=== PATIENT | female | born 1950 | race Caucasian/White ===

== ENCOUNTER → 2017-07-27 12:54 | Outpatient (POV) | payer MEDICARE, OTHER, SELFPAY | PROVIDERS: Family Provider Family Medicine; PCP Nurse Practitioner; Visit Provider Dermatology | DX: Z00.00 Encounter for general adult medical examination without abnormal findings (principal) ==

== ENCOUNTER 2018-12-20 22:02 | Observation (INO) ==
[2018-12-20 22:19] LABS: Basophils # 0.1 K/mm3 (0-0.2); Basophils % 0.6 % (0.1-2.0); Eosinophils # 0.1 K/mm3 (0.0-0.4); Eosinophils % 1.2 % (0.1-12.0); Hematocrit 40.9 % (37.0-47.0); Lymphocytes # 1.8 K/mm3 (0.7-4.5); Lymphocytes % 16.3 % (10-50); Mean Corpuscular HGB Conc 31.7 g/dL (31.8-35.4); Mean Corpuscular Volume 87.3 fl (81-99); Mean Platelet Volume 7.9 fl (7.4-10.4); Monocytes # 0.6 K/mm3 (0.1-1.0); Monocytes % 5.9 % (1.7-9.3); Neutrophils # 8.2 K/mm3 (1.8-7.8); Platelet Count 346 K/mm3 (142-424); Red Blood Count 4.68 M/mm3 (4.20-5.40); White Blood Count 10.8 K/mm3 (4.8-10.8)
[2018-12-20 22:32] LABS: Blood Urea Nitrogen 18 mg/dL (7-18); Calcium 9.4 mg/dL (8.5-10.1); Carbon Dioxide 31 mmol/L (21.0-32.0); Glucose 113 mg/dL (74-106); Sodium 143 mmol/L (136-145)
[2018-12-20 22:39] LABS: Anion Gap 9.8 mEq/L (5-15); Chloride 105 mmol/L (98-107)
[2018-12-20 23:27] LABS: Albumin Level 3.8 gm/dL (3.4-5.0); Bilirubin,Direct 0.5 mg/dL (0.0-0.2); Bilirubin,Indirect 0.9 mg/dL (0.0-0.9); Bilirubin,Total 1.4 mg/dL (0.2-1.0)
--- NOTE | 2018-12-20 23:40 | Emergency Department Note ---
ED Disposition Clinical Impression: Hypokalemia, Transaminasemia Chest pain Qualifiers: Chest pain type: precordial pain Qualified Code(s): R07.2 - Precordial pain Disposition: Admitted as Observation Condition on Discharge: Good Referrals: Juanito Camejo MD [Primary Care Provider] - - Critical Care Critical Care Time: No Attestation: On 12/20/18, the high probability of a clinically significant, sudden or life threatening deterioration of the following system(s) required my full and direct attention, intervention and personal management. The time I documented below is in addition to time spent performing reported procedures but includes the following listed in this critical care notation. Medical Decision Making - Medical Records Medical records reviewed: Yes: I reviewed the patient's medical records. - David Inquiry Pt receiving controlled substance: No Vital Signs: 12/20/18 22:03 Temperature 98.5 F Temperature Source Oral Pulse Rate [Right] 76 Respiratory Rate 18 Blood Pressure [Right Arm] 168/87 H Blood Pressure Mean [Right Arm] 114 02 Sat by Pulse Oximetry 98 - Lab Data Lab results reviewed: Yes: I reviewed the patient's lab results. Lab Results 12/20/18 22:10: WBC 10.8, RBC 4.68, Hgb 13.0, Hct 40.9, MCV 87.3, MCH 27.7, MCHC 31.7 L, RDW 14.0, Plt Count 346, MPV 7.9, Neut % (Auto) 76.0, Lymph % (Auto) 16.3, [place] % (Auto) 5.9, Eos % (Auto) 1.2, Baso % (Auto) 0.6, Neut # (Auto) 8.2 H, Lymph # (Auto) 1.8, [place] # (Auto) 0.6, Eos # (Auto) 0.1, Baso # (Auto) 0.1 12/20/18 22:10: Sodium 143, Potassium 2.8 L*, Chloride 105, Carbon Dioxide 31, Anion Gap 9.8, BUN 18, Creatinine 0.74, Estimated Creat Clear 68, Estimated GFR 78, Est GFR ( Amer) 95, Glucose 113 H, Calcium 9.4, Troponin I < 0.02 12/20/18 22:10: Total Bilirubin 1.4 H, Direct Bilirubin 0.5 H, Indirect Bilirubin 0.9, AST 124 H, ALT 79 H, Alkaline Phosphatase 118 H, Total Protein 7.0, Albumin 3.8, Amylase 39, Lipase 222 12/21/18 00:25: Urine Color Yellow, Urine Appearance Clear, Urine pH 7.5, Ur Specific [place] 1.010, Urine Protein Negative, Urine Glucose (UA) Negative, Urine Ketones Negative, Urine Blood Trace-l, Urine Nitrate Negative, Urine Bilirubin Negative, Urine Urobilinogen 1.0, Ur Leukocyte Esterase Negative, Urine RBC 3-5, Urine Bacteria 1+, Urine Mucus 1+ 12/21/18 00:30: Troponin I < 0.02 Result diagrams: 12/20/18 22:10 12/20/18 22:10 Orders (Tests/Meds): ED MEDICATIONS Generic Name Dose Route Start Last Admin Trade Name Freeugenia PRN Reason Stop Dose Admin Sodium Chloride 1,000 mls @ 999 mls/hr 12/20/18 23:15 12/20/18 23:15 Sod Chlor 0.9% 1000ml Bag IV 12/21/18 00:15 999 mls/hr .Q1H1M [place] Administration Sodium Chloride 8 ml 12/20/18 23:08 Sodium Chloride 0.9% 10ml Vial IV 01/19/19 23:07 NEEDED PRN dilute pepcid Discontinued Medications Generic Name Dose Route Start Last Admin Trade Name Joyce PRN Reason Stop Dose Admin Aspirin 324 mg 12/20/18 22:07 12/20/18 22:24 Aspirin 81mg Chewable Tablet PO 12/20/18 22:08 324 mg ONCE ONE Administration Famotidine 20 mg 12/20/18 23:08 12/20/18 23:14 Pepcid 20mg/2ml Vial IV 12/20/18 23:09 20 mg ONCE ONE Administration Ioversol 75 ml 12/21/18 00:42 12/21/18 00:43 Rad-Optiray 350 100ml Vial IV 12/21/18 00:43 75 ml ONCE ONE Administration Protocol Metoclopramide HCl 10 mg 12/20/18 23:08 12/20/18 23:15 Reglan 10mg/2ml Vial IVP 12/20/18 23:09 10 mg ONCE ONE Administration Nitroglycerin 0.4 mg 12/20/18 22:07 12/20/18 22:24 Nitrostat 0.4mg Sl Tablet SL 12/20/18 22:08 0.4 mg ONCE ONE Administration Nitroglycerin 1 gm 12/20/18 22:07 12/20/18 23:16 Nitroglycerin 1 Inch Oint Udp TD 12/20/18 22:08 Not Given ONCE ONE Sodium Chloride 10 ml 12/21/18 00:42 12/21/18 00:43 Rad-Saline Flush 10ml Syringe IV 12/21/18 00:43 10 ml ONCE ONE Administration ORDERS Category Date Time Status CT abdomen pelvis w con Stat Cat Scan 12/20/18 23:09 Taken XR chest 2V Stat Exams 12/20/18 22:07 Taken - Radiology Data #1 Image(s): Chest Image Reviewed: Yes I reviewed the patient's radiology image Preliminary Findings: Normal/NAD - CT Data CT Scan: Abdomen, Pelvis Time Received: 01:[address] Reviewed: Yes: I have viewed the radiologist's interpretation Preliminary Findings: Abnormal (nonspecific) - ECG Data Tracing #1 Normal Sinus Rhythm: Yes Ischemic changes: non-specific ST-T wave changes - Physician Consults Physician Consulted: rico Reason -: Admission Chest Pain HPI - General Chief Complaint: Chest Pain Stated Complaint: Chest pain Time Seen by Provider: 12/20/18 22:50 Mode of Arrival: Ambulatory Source of Information: Patient, Medical Record Limitations: No Limitations Description of Symptoms (Recalled from ER Triage Doc. by RN): Pt c/o midsternal CP radiating to her neck that has lasted for 2-3 hours. - History of Present Illness HPI narrative: acute onset tonight of lower chest and upper abd pain with nausea - no fever - no known card disease complaint: chest pain indicative of cardiac Onset (ago): hour(s) Duration: now resolved Activity at onset: during rest Pain location: substernal, epigastric Severity: moderate Quality: aching Associated symptoms: nausea Risk Factors for CAD: Family Hx of CAD Treatments prior to or on arrival for Cardiac Chest Pain: none - FANI Score for Non-Stemi Age of Patient: 60-69 years old Heart Rate: 70-89 bpm Systolic Blood Pressure: 160-199 mmHg Serum Creatinine: 0.40-0.79 mg/dl CHF [place] Class: I-No CHF Other Risk Factors: None Non-Stemi Risk Score: 81 - Related Data On Oral Contraceptives: No Allergies Allergy/AdvReac Type Severity Reaction Status Date / Time NKDA Allergy Unknown Uncoded 03/14/17 14:[address] [facility] History - Hepatitis A Screen Drug use history?: No High risk sexual behaviors?: No History of sexually transmitted infection?: No Currently employed?: No Childcare worker?: No Do you have indoor plumbing?: Yes Do you have electricity?: Yes Attestation statement:: This patient has been screened for Hepatitis A risk factors. I have reviewed the patient's past medical history: Yes - Social History Smoking Status: Never smoker Alcohol Intake: former Occupational Status: retired ROS Obtained: Yes All systems reviewed & no additional complaints - Constitutional Constitutional: Denies fever(s) - Eyes Eyes: Denies change in vision - ENT Ears, Nose, Mouth, and Throat: Denies sore throat - Cardiovascular Cardiovascular: Reports as per HPI, Reports chest pain, Denies dyspnea - Respiratory Respiratory: No cough - Gastrointestinal Gastrointestingal: Reports: as per HPI, abdominal pain. Denies: vomiting - Genitourinary Male Genitourinary: Denies flank pain - Musculoskeletal Musculoskeletal: Denies joint pain - Integumentary/Breasts Skin/Breast: Denies rash - Neurologic Neurologic: Denies seizure-like activity Physical Exam - General General appearance: alert - Head Head exam: normocephalic - Eye Eye exam: Present: PERRL, EOMI. Absent: scleral icterus - ENT ENT exam: Present: mucous membranes moist - Neck Neck exam: Present: trachea midline - Respiratory Respiratory exam: Present: normal lung sounds bilaterally. Absent: respiratory distress - Cardiovascular Cardiovascular exam: Present: regular rate, systolic murmur, +S4 - Abdominal Exam Abdominal exam: Present: soft, tenderness Abdominal tenderness: Present: epigastrium, mild - Extremities Exam Extremities exam: Present: full ROM - Neurological Exam Neurological exam: Present: alert, oriented X3, CN II-XII intact - Psychiatric Psychiatric exam: Present: normal affect - Skin Skin exam: Absent: rash
[2018-12-21 00:27] LABS: Microscopic, Urine URINE MICROSCOPIC (MICROSCOPIC)
[2018-12-21 00:32] LABS: Appearance,Urine CLEAR (Clear); Bilirubin,Urine Negative (Negative); Blood, Urine TRACE-L (Negative); Color,Urine YELLOW (Yellow); Glucose,Urine (UA) Negative (Negative); Ketones,Urine Negative (Negative); Leukocyte Esterase,Urine Negative (Negative); PH,Urine 7.5 (5.0-8.5); Protein,Urine Negative (Negative)
[2018-12-21 00:40] LABS: Bacteria,Urine 1+ /lpf; Mucus,Urine 1+ /lpf
[2018-12-21 05:12] LABS: Basophils % 0.5 % (0.1-2.0); Eosinophils # 0.1 K/mm3 (0.0-0.4); Eosinophils % 1.3 % (0.1-12.0); Hematocrit 37.6 % (37.0-47.0); Hemoglobin 11.9 g/dL (12.2-16.2); Lymphocytes % 14.8 % (10-50); Mean Corpuscular HGB Conc 31.5 g/dL (31.8-35.4); Mean Corpuscular Volume 89.6 fl (81-99); Mean Platelet Volume 7.7 fl (7.4-10.4); Monocytes # 0.5 K/mm3 (0.1-1.0); Monocytes % 7.6 % (1.7-9.3); Neutrophils # 5.1 K/mm3 (1.8-7.8); Neutrophils % 75.9 % (37.0-80.0); Platelet Count 291 K/mm3 (142-424); Red Cell Distribution Width 14.3 % (11.5-17.5); White Blood Count 6.7 K/mm3 (4.8-10.8)
[2018-12-21 05:37] LABS: Albumin Level 3.4 gm/dL (3.4-5.0); Anion Gap 11.4 mEq/L (5-15); Bilirubin,Indirect 1.2 mg/dL (0.0-0.9); Bilirubin,Total 2.2 mg/dL (0.2-1.0); Calcium 8.6 mg/dL (8.5-10.1); Chol/HDL Ratio 4.9 (1-3.5); Total Protein,Serum 6.2 gm/dL (6.4-8.2)
--- NOTE | 2018-12-21 07:06 | History & Physical Report ---
*Admission Date: 12/21/18 *Chief complaint: Epigastric abdominal pain *History of present illness: 68-year-old female presented to the emergency department after onset of discomfort in the epigastrium and underneath the ribs bilaterally that radiated up into the chest. Symptoms did not respond to drinking milk in case she was having some heartburn. After 3 hours of symptoms she presented to the emergency department to make sure "she was not having a heart attack". Work-up was begun and cardiac evaluation was negative. Patient was found to have elevated transaminases and was admitted for serial liver function tests and abdominal ultrasound. Patient reports being in her normal state of health yesterday until the evening at which point she admits she did not have much appetite. She denies nausea, vomiting. Bowel movements were normal yesterday. She denies fevers or chills. She still has her gallbladder. 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 She denies any recent changes in medications and does not take Tylenol. She did not introduce any new foods into her diet yesterday nor eat for many restaurants. She has never had any prior abnormal liver functions as far she is aware [facility] History I have reviewed the patient's past medical history: Yes Medical History: Reports:: Cancer (skin), Hypertension Denies:: Diabetes Mellitus Type 1, Diabetes Mellitus Type 2, MRSA *Have you ever received a pneumonia vaccine?: Yes *Have you received a flu vaccine this season?: No Other Medical History: Reports: Arthritis Other Surgeries: Yes: Appendectomy, Colonoscopy, EGD Amputation: No Fractures: Yes (cheek) - *Social History Educational Level: Completed High School Smoking Status: Never smoker Alcohol Intake: former Alcohol Intake Frequency:: other (See HPI) *Occupational Status:: retired *Travel in the last 8 weeks: None Family Hx:: Cancer, Coronary Artery Disease, Heart Attack, Hyperlipidemia, Hypertension, Stroke, Thyroid Disorder, Substance abuse, Alcoholism, Mental illness Review of Systems - Review of Systems Review of systems:: pertinent systems reviewed and negative unless documented below - Constitutional Denies body ache(s), Denies chills, Denies fever(s), Denies headache(s), Denies malaise - *Cardiovascular Reports chest pain - *Gastrointestinal Reports abdominal pain, Denies belching, Denies change in bowel habits, Denies change in stools, Denies coffee ground vomit, Denies constipation, Denies loose stools, Denies heartburn, Denies difficulty swallowing, Denies incontinent of stools, Denies bright, red blood in stools, Denies black, tarry stools - *Genitourinary Reports urinary incontinence - *Neurologic Denies seizure-like activity Meds Home Medications Medication Instructions Recorded Confirmed Type Celecoxib 200 mg PO DAILY 12/21/18 12/21/18 History Ibuprofen [Ibuprofen 600mg 600 mg PO QID PRN 12/21/18 12/21/18 History Tablet] Levothyroxine Sodium 100 mg PO DAILY 12/21/18 12/21/18 History [Levothyroxine 100mcg (0.1MG) Tab] Venlafaxine HCl 75 mg PO DAILY 12/21/18 12/21/18 History Allergies Allergy/AdvReac Type Severity Reaction Status Date / Time NKDA Allergy Unknown Uncoded 03/14/17 14:30 Exam Vital signs and Labs for Last 24 Hours: Temp Pulse Resp BP Pulse Ox 98.1 F 64 20 152/68 H 96 12/21/18 04:00 12/21/18 04:00 12/21/18 04:00 12/21/18 04:00 12/21/18 04:00 Laboratory Results - last 24 hr 12/20/18 22:10: WBC 10.8, RBC 4.68, Hgb 13.0, Hct 40.9, MCV 87.3, MCH 27.7, MCHC 31.7 L, RDW 14.0, Plt Count 346, MPV 7.9, Neut % (Auto) 76.0, Lymph % (Auto) 16.3, [place] % (Auto) 5.9, Eos % (Auto) 1.2, Baso % (Auto) 0.6, Neut # (Auto) 8.2 H, Lymph # (Auto) 1.8, [place] # (Auto) 0.6, Eos # (Auto) 0.1, Baso # (Auto) 0.1 12/20/18 22:10: Sodium 143, Potassium 2.8 L*, Chloride 105, Carbon Dioxide 31, Anion Gap 9.8, BUN 18, Creatinine 0.74, Estimated Creat Clear 68, Estimated GFR 78, Est GFR ( Amer) 95, Glucose 113 H, Calcium 9.4, Troponin I < 0.02 12/20/18 22:10: Total Bilirubin 1.4 H, Direct Bilirubin 0.5 H, Indirect Bilirubin 0.9, AST 124 H, ALT 79 H, Alkaline Phosphatase 118 H, Total Protein 7.0, Albumin 3.8, Amylase 39, Lipase 222 12/21/18 00:25: Urine Color Yellow, Urine Appearance Clear, Urine pH 7.5, Ur Specific [place] 1.010, Urine Protein Negative, Urine Glucose (UA) Negative, Urine Ketones Negative, Urine Blood Trace-l, Urine Nitrate Negative, Urine Bilirubin Negative, Urine Urobilinogen 1.0, Ur Leukocyte Esterase Negative, Urine RBC 3-5, Urine Bacteria 1+, Urine Mucus 1+ 12/21/18 00:30: Troponin I < 0.02 12/21/18 04:30: Troponin I < 0.02 12/21/18 04:30: WBC 6.7 D, RBC 4.20, Hgb 11.9 L, Hct 37.6, MCV 89.6, MCH 28.2, MCHC 31.5 L, RDW 14.3, Plt Count 291, MPV 7.7, Neut % (Auto) 75.9, Lymph % (Auto) 14.8, [place] % (Auto) 7.6, Eos % (Auto) 1.3, Baso % (Auto) 0.5, Neut # (Auto) 5.1, Lymph # (Auto) 1.0, [place] # (Auto) 0.5, Eos # (Auto) 0.1, Baso # (Auto) 0.0 12/21/18 04:30: Sodium 143, Potassium 3.4 L D, Chloride 107, Carbon Dioxide 28, Anion Gap 11.4, BUN 13 D, Creatinine 0.57 D, Estimated Creat Clear 65, Estimated GFR 106, Est GFR ( Amer) 128 D, Glucose 99, Calcium 8.6, Total Bilirubin 2.2 H, Direct Bilirubin 1.0 H, Indirect Bilirubin 1.2 H, AST 564 H* D, ALT 390 H*, Alkaline Phosphatase 122 H, Total Protein 6.2 L, Albumin 3.4 D, Triglycerides 169, Cholesterol 158, LDL Cholesterol 92, VLDL Cholesterol 34, HDL Cholesterol 32, Cholesterol/HDL Ratio 4.9 H I & O for Last 24 hours: Intake & Output 12/18/18 12/19/18 12/20/18 12/21/18 11:59 11:59 11:59 11:59 Intake Total 1000 / 1000 Balance 1000 / 1000 Weight 165 lb - Constitutional no acute distress - *Routine HEENT Exam Head: Present: normocephalic Eye: Present: EOMI, PERRL. Absent: scleral injection ENT: Present: mucous membranes moist - *Routine Neck Exam Present: supple, full ROM. Absent: JVD - *Routine Respiratory Exam Present: CTA bilaterally - *Routine Cardiovascular Exam Present: RRR, Normal S1, Normal S2 - *Routine Abdominal Exam Present: soft, normoactive bowel sounds, tenderness (Right upper quadrant) Assessment and Plan (1) Hepatitis, unspecified Current visit: Yes Status: Acute Category: Medical Code(s): K75.9 - Inflammatory liver disease, unspecified (2) Hypokalemia Current visit: Yes Status: Resolved Category: Medical Code(s): E87.6 - Hypokalemia - Assessment and plan all Dx Assessment and Plan for all problems:: 1. Viral hepatitis panel has been ordered. Patient is stable. Continue IV fluids and serial transaminases. 2. Pain that radiated to the chest is not cardiac in origin. compliance monitor will be discontinued 3. Continue patient's home medications.
--- NOTE | 2018-12-21 07:11 | Pharmacy Consult Notes ---
[facility] Pharmacy VTE Monitoring - Patient Demographics Admission date: 12/21/18 Report Date: 12/21/18 Time: 07:11 Allergies/Adverse Reactions: Patient Allergies NKDA Allergy (Unknown, Uncoded 03/14/17 14:30) Height: 1.75 m Weight: 74.843 kg Patient Problems: Current Active Problems Chest pain (Acute) Hypokalemia (Acute) Transaminasemia (Acute) - VTE Risk Labs: VTE Related Lab Results Hgb 11.9 g/dL (12.2-16.2) L 12/21/18 04:30 Hct 37.6 % (37.0-47.0) 12/21/18 04:30 Plt Count 291 K/mm3 (142-424) 12/21/18 04:30 BUN 13 mg/dL (7-18) D 12/21/18 04:30 Creatinine 0.57 mg/dL (0.55-1.02) D 12/21/18 04:30 Estimated Creat Clear 65 mL/min (50-200) 12/21/18 04:30 VTE Score: 5 VTE Risk Level: Low Risk - Prophylaxis VTE Prophylaxis Ordered?: Yes Types of VTE Prophylaxis: TEDS Knee High Location of Applied Device: Bilateral Lower Extremeties - VTE Diagnosis Confirmed Treatment or plan recommended: Continue Current Treatment
--- NOTE | 2018-12-21 09:44 | Electrocardiograph Report ---
APPROVED REPORT Exam: Resting ECG HR:68 bpm ECG Measurements Heart Rate 68 AXES ME 192 P 67 QRSd 80 QRS 35 QT 390 T22 QTc 414 <Conclusion> Normal sinus rhythm Nonspecific ST and T wave abnormality Abnormal ECG Electronically signed by : Earnest Kerr, 12/21/2018 09:43:56
--- NOTE | 2018-12-21 11:51 | Consult Report ---
*Admission Date: 12/21/18 *Reason for consult:: Acute cholecystitis *History of present illness: This is a 68-year-old female seen in consultation from Dr. Conway for evaluation regarding gallbladder disease. Please see history of present illness forwarded from admission H&P below: 68-year-old female presented to the emergency department after onset of discomfort in the epigastrium and underneath the ribs bilaterally that radiated up into the chest. Symptoms did not respond to drinking milk in case she was having some heartburn. After 3 hours of symptoms she presented to the emergency department to make sure "she was not having a heart attack". Work-up was begun and cardiac evaluation was negative. Patient was found to have elevated transaminases and was admitted for serial liver function tests and abdominal ultrasound. Patient reports being in her normal state of health yesterday until the evening at which point she admits she did not have much appetite. She denies nausea, vomiting. Bowel movements were normal yesterday. She denies fevers or chills. She still has her gallbladder. 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 She denies any recent changes in medications and does not take Tylenol. She did not introduce any new foods into her diet yesterday nor eat for many restaurants. She has never had any prior abnormal liver functions as far she is aware Review of Systems - Constitutional Denies fever(s) - Eyes Denies change in vision - *Respiratory Denies cough - *Gastrointestinal Reports abdominal pain - *Neurologic Denies headache(s), Denies seizure-like activity - Hematologic/Lymphatic Denies easy bleeding [facility] History Medical History: Reports:: Cancer (skin), Hypertension Denies:: Diabetes Mellitus Type 1, Diabetes Mellitus Type 2, MRSA *Have you ever received a pneumonia vaccine?: Yes *Have you received a flu vaccine this season?: No Other Medical History: Reports: Arthritis Other Surgeries: Yes: Appendectomy, Colonoscopy, EGD Amputation: No Fractures: Yes (cheek) - *Social History Educational Level: Completed High School Smoking Status: Never smoker Alcohol Intake: former Alcohol Intake Frequency:: other (See HPI) *Occupational Status:: retired *Travel in the last 8 weeks: None Family Hx:: Cancer, Coronary Artery Disease, Heart Attack, Hyperlipidemia, Hypertension, Stroke, Thyroid Disorder, Substance abuse, Alcoholism, Mental illness Meds Home Medications Medication Instructions Recorded Confirmed Type Celecoxib 200 mg PO DAILY 12/21/18 12/21/18 History Ibuprofen [Ibuprofen 600mg 600 mg PO QIDP PRN 12/21/18 12/21/18 History Tablet] Levothyroxine Sodium 100 mg PO DAILY 12/21/18 12/21/18 History [Levothyroxine 100mcg (0.1MG) Tab] Venlafaxine HCl 75 mg PO DAILY 12/21/18 12/21/18 History Allergies Allergy/AdvReac Type Severity Reaction Status Date / Time No Known Allergies Allergy Unverified 12/21/18 08:00 Exam Vital signs and Labs for Last 24 Hours: Temp Pulse Resp BP Pulse Ox 98.5 F 69 18 148/75 H 96 12/21/18 08:00 12/21/18 08:00 12/21/18 08:00 12/21/18 08:00 12/21/18 08:00 Laboratory Results - last 24 hr 12/20/18 22:10: WBC 10.8, RBC 4.68, Hgb 13.0, Hct 40.9, MCV 87.3, MCH 27.7, MCHC 31.7 L, RDW 14.0, Plt Count 346, MPV 7.9, Neut % (Auto) 76.0, Lymph % (Auto) 16.3, [place] % (Auto) 5.9, Eos % (Auto) 1.2, Baso % (Auto) 0.6, Neut # (Auto) 8.2 H, Lymph # (Auto) 1.8, [place] # (Auto) 0.6, Eos # (Auto) 0.1, Baso # (Auto) 0.1 12/20/18 22:10: Sodium 143, Potassium 2.8 L*, Chloride 105, Carbon Dioxide 31, Anion Gap 9.8, BUN 18, Creatinine 0.74, Estimated Creat Clear 68, Estimated GFR 78, Est GFR ( Amer) 95, Glucose 113 H, Calcium 9.4, Troponin I < 0.02 12/20/18 22:10: Total Bilirubin 1.4 H, Direct Bilirubin 0.5 H, Indirect Bilirubin 0.9, AST 124 H, ALT 79 H, Alkaline Phosphatase 118 H, Total Protein 7.0, Albumin 3.8, Amylase 39, Lipase 222 12/21/18 00:25: Urine Color Yellow, Urine Appearance Clear, Urine pH 7.5, Ur Specific [place] 1.010, Urine Protein Negative, Urine Glucose (UA) Negative, Urine Ketones Negative, Urine Blood Trace-l, Urine Nitrate Negative, Urine Bilirubin Negative, Urine Urobilinogen 1.0, Ur Leukocyte Esterase Negative, Urine RBC 3-5, Urine Bacteria 1+, Urine Mucus 1+ 12/21/18 00:30: Troponin I < 0.02 12/21/18 04:30: Troponin I < 0.02 12/21/18 04:30: WBC 6.7 D, RBC 4.20, Hgb 11.9 L, Hct 37.6, MCV 89.6, MCH 28.2, MCHC 31.5 L, RDW 14.3, Plt Count 291, MPV 7.7, Neut % (Auto) 75.9, Lymph % (Auto) 14.8, [place] % (Auto) 7.6, Eos % (Auto) 1.3, Baso % (Auto) 0.5, Neut # (Auto) 5.1, Lymph # (Auto) 1.0, [place] # (Auto) 0.5, Eos # (Auto) 0.1, Baso # (Auto) 0.0 12/21/18 04:30: Sodium 143, Potassium 3.4 L D, Chloride 107, Carbon Dioxide 28, Anion Gap 11.4, BUN 13 D, Creatinine 0.57 D, Estimated Creat Clear 65, Est imated GFR 106, Est GFR ( Amer) 128 D, Glucose 99, Calcium 8.6, Total Bilirubin 2.2 H, Direct Bilirubin 1.0 H, Indirect Bilirubin 1.2 H, AST 564 H* D, ALT 390 H*, Alkaline Phosphatase 122 H, Total Protein 6.2 L, Albumin 3.4 D, Triglycerides 169, Cholesterol 158, LDL Cholesterol 92, VLDL Cholesterol 34, HDL Cholesterol 32, Cholesterol/HDL Ratio 4.9 H 12/21/18 07:28: Troponin I < 0.02 I & O for Last 24 hours: Intake & Output 12/18/18 12/19/18 12/20/18 12/21/18 11:59 11:59 11:59 11:59 Intake Total 1000 / 1000 Balance 1000 / 999 Weight 165 lb - Constitutional no acute distress - *Routine Respiratory Exam Absent: respiratory distress - *Routine Cardiovascular Exam Present: RRR - *Routine Abdominal Exam Present: soft, tenderness Comments: Epigastric and right upper quadrant tenderness Results - Labs 12/21/18 04:30 12/21/18 04:30 Laboratory Results - last 24 hr 12/20/18 22:10: WBC 10.8, RBC 4.68, Hgb 13.0, Hct 40.9, MCV 87.3, MCH 27.7, MCHC 31.7 L, RDW 14.0, Plt Count 346, MPV 7.9, Neut % (Auto) 76.0, Lymph % (Auto) 16.3, [place] % (Auto) 5.9, Eos % (Auto) 1.2, Baso % (Auto) 0.6, Neut # (Auto) 8.2 H, Lymph # (Auto) 1.8, [place] # (Auto) 0.6, Eos # (Auto) 0.1, Baso # (Auto) 0.1 12/20/18 22:10: Sodium 143, Potassium 2.8 L*, Chloride 105, Carbon Dioxide 31, Anion Gap 9.8, BUN 18, Creatinine 0.74, Estimated Creat Clear 68, Estimated GFR 78, Est GFR ( Amer) 95, Glucose 113 H, Calcium 9.4, Troponin I < 0.02 12/20/18 22:10: Total Bilirubin 1.4 H, Direct Bilirubin 0.5 H, Indirect Biliru bin 0.9, AST 124 H, ALT 79 H, Alkaline Phosphatase 118 H, Total Protein 7.0, Albumin 3.8, Amylase 39, Lipase 222 12/21/18 00:25: Urine Color Yellow, Urine Appearance Clear, Urine pH 7.5, Ur Specific [place] 1.010, Urine Protein Negative, Urine Glucose (UA) Negative, Urine Ketones Negative, Urine Blood Trace-l, Urine Nitrate Negative, Urine Bilirubin Negative, Urine Urobilinogen 1.0, Ur Leukocyte Esterase Negative, Urine RBC 3-5, Urine Bacteria 1+, Urine Mucus 1+ 12/21/18 00:30: Troponin I < 0.02 12/21/18 04:30: Troponin I < 0.02 12/21/18 04:30: WBC 6.7 D, RBC 4.20, Hgb 11.9 L, Hct 37.6, MCV 89.6, MCH 28.2, MCHC 31.5 L, RDW 14.3, Plt Count 291, MPV 7.7, Neut % (Auto) 75.9, Lymph % (Auto) 14.8, [place] % (Auto) 7.6, Eos % (Auto) 1.3, Baso % (Auto) 0.5, Neut # (Auto) 5.1, Lymph # (Auto) 1.0, [place] # (Auto) 0.5, Eos # (Auto) 0.1, Baso # (Auto) 0.0 12/21/18 04:30: Sodium 143, Potassium 3.4 L D, Chloride 107, Carbon Dioxide 28, Anion Gap 11.4, BUN 13 D, Creatinine 0.57 D, Estimated Creat Clear 65, Estimated GFR 106, Est GFR ( Amer) 128 D, Glucose 99, Calcium 8.6, Total Bilirubin 2.2 H, Direct Bilirubin 1.0 H, Indirect Bilirubin 1.2 H, AST 564 H* D, ALT 390 H*, Alkaline Phosphatase 122 H, Total Protein 6.2 L, Albumin 3.4 D, Triglycerides 169, Cholesterol 158, LDL Cholesterol 92, VLDL Cholesterol 34, HDL Cholesterol 32, Cholesterol/HDL Ratio 4.9 H 12/21/18 07:28: Troponin I < 0.02 - Imaging US - abdomen: report reviewed, image reviewed Assessment and Plan (1) Hepatitis, unspecified Current visit: Yes Status: Acute Category: Medical Code(s): K75.9 - Inflammatory liver disease, unspecified (2) Hypokalemia Current visit: Yes Status: Resolved Category: Medical Code(s): E87.6 - Hypokalemia (3) Acute calculous cholecystitis Current visit: Yes Status: Acute Category: Medical Code(s): K80.00 - Calculus of gallbladder with acute cholecystitis without obstruction She is being scheduled for laparoscopic cholecystectomy with intraoperative cholangiogram. I have discussed the risks and benefits including, but not limited to: Bleeding Infection Damage to surrounding tissue Inherent risks of sedation The patient agrees to proceed. (4) Abnormal results of liver function studies Current visit: Yes Status: Acute Category: Medical Code(s): R94.5 - Abnormal results of liver function studies
--- NOTE | 2018-12-21 15:23 | Operative Note ---
Date of procedure: 12/21/18 Pre-op Diagnosis:: Acute calculus cholecystitis Abnormal liver function studies Post-op Diagnosis:: Same Procedure performed:: Laparoscopic cholecystectomy (intraoperative cholangiogram not performed secondary to "inspissated sludge and stones" essentially stuck in cystic duct) Surgeon:: Rodrick Ramires MD HEAD DOFFER:: Tim Clinton Anesthesia: GETA Estimated blood loss (mL): 15 Operative findings:: Severe acute inflammation throughout gallbladder. Intraoperative cholangiogram not performed secondary to inability to safely c lear inspissated sludge and stones that were stuck within the cystic duct stump. Operative note:: After informed consent was obtained, the patient was taken to the operating room and placed in the supine position. General anesthesia was induced and the abdomen was prepped and draped in a sterile fashion. After infiltration with local anesthetic an infraumbilical incision was made. A Veress needle was placed in position. The abdomen was insufflated. A 5 mm optical trocar was placed in position. Under direct visualization, a 12 mm trocar was placed in the subxiphoid position and 2 additional 5 mm trocars were placed in the right upper quadrant. The gallbladder was elevated up and over the liver margin. Severe acute inflammatory changes noted throughout. The tissue around the cystic duct was carefully dissected. A clip was placed at the duct/infundibular margin. A partial transection of the duct was then completed with laparoscopic scissors. The cholangiogram catheter sheath was entered through a small right upper quadrant stab incision. The catheter was placed in position. Resistance was immediately noted. A small amount of sludge/stones noted with irrigation. The catheter could not be safely advanced and the lodged material could not be safely removed. The decision was made to forego further attempts at cholangiogram. 3 clips were placed proximally and the duct was transected with harmonic maximiliano. Harmonic maximiliano were then utilized to dissect the gallbladder away from the liver margin with careful attention to the control of the cystic artery. The gallbladder was placed in a retrieval bag and removed through the subxiphoid trocar site. The right upper quadrant was thoroughly irrigated. No active bleeding or bile leak was noted. Fascia at the subxiphoid trocar site was reapproximated utilizing 0 Ethibond. The remaining trocars were removed. All wounds were irrigated and skin was closed with 4-0 Monocryl in a subcutic ular fashion. Steri-Strips were applied. The patient's anesthetic agents were reversed and extubation was completed prior to transfer to recovery in stable condition. Condition: stable Disposition: PACU Specimens:: Gallbladder Complications:: No immediate
--- NOTE | 2018-12-21 15:31 | Progress Note ---
[facility] Anesthesia Checklist - Structural Data Admitted From: Inpatient Planned Operative Procedure/s: latasha higginbotham Consent for Planned Operative Procedure(s) Verified: Yes - Airway Assessment C-Spine Mobility Assessed: Yes TMJ Mobility Assessed: Yes Dentition: Poor Dentition - Neurological Assessment Level of Consciousness: Awake, Alert, Appropriate - Anesthesia Plan Anesthesia Risk discussed: Yes Anesthesia Plan: Verified ASA Class: II Anesthesia Type: General [facility] History I have reviewed the patient's past medical history: Yes Medical History: Reports:: Cancer (skin), Hypertension Denies:: Diabetes Mellitus Type 1, Diabetes Mellitus Type 2, MRSA *Have you ever received a pneumonia vaccine?: Yes *Have you received a flu vaccine this season?: No Other Medical History: Reports: Arthritis Anesthesia experience/problems:: none Other Surgeries: Yes: Appendectomy, Colonoscopy, EGD Amputation: No Fractures: Yes (cheek) - *Social History Educational Level: Completed High School Smoking Status: Never smoker Alcohol Intake: former Alcohol Intake Frequency:: other (See HPI) Substance Use Type: denies use *Occupational Status:: retired *Travel in the last 8 weeks: None Family Hx:: Cancer, Coronary Artery Disease, Heart Attack, Hyperlipidemia, Hypertension, Stroke, Thyroid Disorder, Substance abuse, Alcoholism, Mental illness
--- NOTE | 2018-12-21 15:32 | Progress Note ---
[facility] Anesthesia Record Part I Intake, IV Amount: 1,500 Estimated blood loss (mL): 0 Urine output (mL): 0 Blood Pressure: 141/92 SaO2: 93 Pulse Rate: 70 Respiratory Rate: 12 Temperature: 97.8 F Patient is:: Awake, Stable Stable to PACU at:: 15:25
--- NOTE | 2018-12-21 15:33 | Progress Note ---
[facility] Anesthesia Record Part II Discharge Time: 15:55 Destination: floor PACU nurse assessment reviewed?: Yes Patient Condition:: Good Anesthesia Complications:: None Swallowing reflex intact?: Yes Cyanosis?: No
[2018-12-22 07:32] LABS: Anion Gap 11.6 mEq/L (5-15); Calcium 8.2 mg/dL (8.5-10.1)
[2018-12-22 07:33] LABS: Basophils % 0.1 % (0.1-2.0); Hematocrit 37.7 % (37.0-47.0); Hemoglobin 11.9 g/dL (12.2-16.2); Lymphocytes # 0.7 K/mm3 (0.7-4.5); Lymphocytes % 8.5 % (10-50); Mean Corpuscular HGB Conc 31.6 g/dL (31.8-35.4); Mean Corpuscular Volume 89.5 fl (81-99); Mean Platelet Volume 8.1 fl (7.4-10.4); Monocytes # 0.4 K/mm3 (0.1-1.0); Monocytes % 5.2 % (1.7-9.3); Neutrophils # 6.8 K/mm3 (1.8-7.8); Neutrophils % 86.2 % (37.0-80.0); Platelet Count 303 K/mm3 (142-424); Red Blood Count 4.21 M/mm3 (4.20-5.40); White Blood Count 7.9 K/mm3 (4.8-10.8)
[2018-12-22 07:35] LABS: Bilirubin,Direct 0.4 mg/dL (0.0-0.2); Bilirubin,Indirect 1.3 mg/dL (0.0-0.9); Bilirubin,Total 1.7 mg/dL (0.2-1.0); Total Protein,Serum 5.9 gm/dL (6.4-8.2)
--- NOTE | 2018-12-22 07:58 | Progress Note ---
Internal Medicine - PN: Subj *Date: 12/22/18 *Time: 07:56 Interval history: Patient has no complaints this morning. Yesterday she underwent successful laparoscopic cholecystectomy when gallbladder ultrasound revealed evidence of acute cholecystitis with gallstones. Intraoperative cholangiogram could not be performed due to the presence of sludge and small stones within the cystic duct. Patient notes mild discomfort in the right upper quadrant. She is tolerating clear liquids well. Exam Vital signs and Labs for Last 24 Hours: Temp Pulse Resp BP Pulse Ox 98.3 F 74 16 124/57 L 96 12/22/18 04:00 12/22/18 04:00 12/22/18 04:00 12/22/18 04:00 12/22/18 04:00 Laboratory Results - last 24 hr 12/21/18 07:28: Troponin I < 0.02 12/22/18 06:56: WBC 7.9, RBC 4.21, Hgb 11.9 L, Hct 37.7, MCV 89.5, MCH 28.3, MCHC 31.6 L, RDW 14.0, Plt Count 303, MPV 8.1, Neut % (Auto) 86.2 H, Lymph % (Auto) 8.5 L, [place] % (Auto) 5.2, Eos % (Auto) 0.0 L, Baso % (Auto) 0.1, Neut # (Auto) 6.8, Lymph # (Auto) 0.7, [place] # (Auto) 0.4, Eos # (Auto) 0.0, Baso # (Auto) 0.0 12/22/18 06:56: Sodium 143, Potassium 3.6, Chloride 108 H, Carbon Dioxide 27, Anion Gap 11.6, BUN 13, Creatinine 0.63, Estimated Creat Clear 67, Estimated GFR 94, Est GFR ( Amer) 114, Glucose 123 H, Calcium 8.2 L 12/22/18 06:56: Total Bilirubin 1.7 H, Direct Bilirubin 0.4 H, Indirect Bilirubin 1.3 H, AST 492 H*, ALT 761 H*, Alkaline Phosphatase 194 H, Total Protein 5.9 L, Albumin 3.0 L D I & O for Last 24 hours: Intake & Output 12/19/18 12/20/18 12/21/18 12/22/18 11:59 11:59 11:59 11:59 Intake Total 1000 / 999 2620 / 2620 Balance 999 / 9990 / 2620 Weight 165 lb 171 lb 6 oz Narrative: Patient is awake and alert in no distress. Nasal cannula has been applied overnight. Oropharynx is moist and clear. Lungs are clear to auscultation. Heart has a regular rate and rhythm. Abdomen is soft and without significant tenderness. Bowel sounds are present Assessment and Plan (1) Acute calculous cholecystitis Current visit: Yes Status: Acute Category: Medical Code(s): K80.00 - Calculus of gallbladder with acute cholecystitis without obstruction (2) Hepatitis, unspecified Current visit: Yes Status: Acute Category: Medical Code(s): K75.9 - Inflam matory liver disease, unspecified (3) Hypokalemia Current visit: Yes Status: Resolved Category: Medical Code(s): E87.6 - Hypokalemia (4) Abnormal results of liver function studies Current visit: Yes Status: Acute Category: Medical Code(s): R94.5 - Abnormal results of liver function studies - Assessment and plan all Dx Assessment and Plan for all problems:: Patient's LFTs have risen slightly since yesterday. Patient will be kept overnight with repeat liver testing in the morning. Bilirubin has dropped sl ightly which is encouraging for ruling out common bile duct obstruction.
[2018-12-22 08:13] LABS: Hepatitis B Surface Antigen Negative (Negative)
[2018-12-22 11:17] LABS: Lymphocytes % 3 % (10-50); Monocytes % 2 % (2-9); Neutrophils % 95 % (42-76); RBC Morphology Normal; Total Cells Counted 100
[2018-12-22 15:36] LABS: Hepatitis C Antibody <0.1 s/co ratio (0.0-0.9)
--- NOTE | 2018-12-22 16:06 | Progress Note ---
Subjective Patient reports: no new complaints, tolerating liquids well Narrative: Ms. Gomez is a 68-year-old female status post laparoscopic cholecystectomy for acute cholecystitis. Today's postoperative day #1. Reports doing relatively well. Still residual subcostal abdominal pain without nausea or emesis. LFTs remain elevated. No other complaints. Exam Vital signs and Labs for Last 24 Hours: Temp Pulse Resp BP Pulse Ox 98.4 F 63 17 160/66 H 97 12/22/18 15:59 12/22/18 15:59 12/22/18 15:59 12/22/18 15:59 12/22/18 15:59 Laboratory Results - last 24 hr 12/21/18 07:28: Hepatitis A IgM Ab Negative, Hep Bs Antigen Negative, Hep B Core IgM Ab Negative, Hepatitis C Antibody <0.1 12/22/18 06:56: WBC 7.9, RBC 4.21, Hgb 11.9 L, Hct 37.7, MCV 89.5, MCH 28.3, M CHC 31.6 L, RDW 14.0, Plt Count 303, MPV 8.1, Neut % (Auto) 86.2 H, Lymph % (Auto) 8.5 L, [place] % (Auto) 5.2, Eos % (Auto) 0.0 L, Baso % (Auto) 0.1, Neut # (Auto) 6.8, Lymph # (Auto) 0.7, [place] # (Auto) 0.4, Eos # (Auto) 0.0, Baso # (Auto) 0.0, Total Counted 100, Neutrophils % (Manual) 95 H, Lymphocytes % (Manual) 3 L, Monocytes % (Manual) 2, Platelet Estimate Normal, RBC Morphology Normal 12/22/18 06:56: Sodium 143, Potassium 3.6, Chloride 108 H, Carbon Dioxide 27, Anion Gap 11.6, BUN 13, Creatinine 0.63, Estimated Creat Clear 67, Estimated GFR 94, Est GFR ( Amer) 114, Glucose 123 H, Calcium 8.2 L 12/22/18 06:56: Total Bilirubin 1.7 H, Direct Bilirubin 0.4 H, Indirect Bilirubin 1.3 H, AST 492 H*, ALT 761 H*, Alkaline Phosphatase 194 H, Total Protein 5.9 L, Albumin 3.0 L D I & O for Last 24 hours: Intake & Output 12/20/18 12/21/18 12/22/18 12/23/18 11:59 11:59 11:59 11:59 Intake Total 1000 / 1000 2980 / 2980 870 / 870 Balance 1000 / 1000 2980 / 2980 870 / 870 Weight 74.843 kg 77.734 kg - Constitutional no acute distress Comments: Sitting upright in chair. - *Routine Abdominal Exam Comments: Soft. Appropriately tender. Slightly distended. Progress Note: A&P (1) Acute calculous cholecystitis Status: Acute Current Visit: Yes (2) Hepatitis, unspecified Status: Acute Current Visit: Yes (3) Hypokalemia Status: Resolved Current Visit: Yes (4) Abnormal results of liver function studies Status: Acute Current Visit: Yes Assessment and Plan for All Diagnoses:: 1. Acute cholecystitis. Postoperative day #1. Doing well. Tolerating clear liquids. Advance to low-fat diet. Continue inpatient admission until further improvement in LFTs as noted. Bilirubin has improved. Still remains slightly elevated.
--- NOTE | 2018-12-23 07:48 | Progress Note ---
Internal Medicine - PN: Subj *Date: 12/23/18 *Time: 07:46 Interval history: Patient feels well this morning. She denies any abdominal pain. She denies nausea or vomiting. She has tolerated her low-fat diet. She does note some left periscapular pain which she describes as a stiffness that is relieved when she gets up and ambulates Exam Vital signs and Labs for Last 24 Hours: Temp Pulse Resp BP Pulse Ox 98.2 F 77 16 142/76 H 95 12/23/18 04:00 12/23/18 04:00 12/23/18 04:00 12/23/18 04:00 12/23/18 04:00 Laboratory Results - last 24 hr 12/21/18 07:28: Hepatitis A IgM Ab Negative, Hep Bs Antigen Negative, Hep B Core IgM Ab Negative, Hepatitis C Antibody <0.1 12/22/18 06:56: Total Counted 100, Neutrophils % (Manual) 95 H, Lymphocytes % (Manual) 3 L, Monocytes % (Manual) 2, Platelet Estimate Normal, RBC Morphology Normal I & O for Last 24 hours: Intake & Output 12/20/18 12/21/18 12/22/18 12/23/18 11:59 11:59 11:59 11:59 Intake Total 1000 / 1000 2980 / 2980 2500 / 2500 Balance 1000 / 1000 2980 / 2980 2500 / 2500 Weight 165 lb 171 lb 6 oz 174 lb 6 oz Narrative: Patient looks comfortable. Lungs remain clear. Heart has a regular rate and rhythm. Abdomen is soft and without tenderness. The umbilical dressing is saturated with blood. Assessment and Plan (1) Acute calculous cholecystitis Current visit: Yes Status: Acute Category: Medical Code(s): K80.00 - Calculus of gallbladder with acute cholecystitis without obstruction (2) Hepatitis, unspecified Current visit: Yes Status: Acute Category: Medical Code(s): K75.9 - Inflammatory liver disease, unspecified (3) Hypokalemia Current visit: Yes Status: Resolved Category: Medical Code(s): E87.6 - Hypokalemia (4) Abnormal results of liver function studies Current visit: Yes Status: Acute Category: Medical Code(s): R94.5 - Abnormal results of liver function studies - Assessment and plan all Dx Assessment and Plan for all problems:: Patient is improving. Await labs this morning. If liver functions have improved patient will be discharged home
--- NOTE | 2018-12-23 08:32 | Discharge Summary ---
General - General Admission date:: 12/21/18 Discharge date: 12/23/18 HPI HPI: 68-year-old female presented to the emergency department after onset of discomfort in the epigastrium and underneath the ribs bilaterally that radiated up into the chest. Symptoms did not respond to drinking milk in case she was having some heartburn. After 3 hours of symptoms she presented to the emergency department to make sure "she was not having a heart attack". Work-up was begun and cardiac evaluation was negative. Patient was found to have elevated transaminases and was admitted for serial liver function tests and abdominal ultrasound. Patient reports being in her normal state of health yesterday until the evening at which point she admits she did not have much appetite. She denies nausea, vomiting. Bowel movements were normal yesterday. She denies fevers or chills. She still has her gallbladder. 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 She denies any recent changes in medications and does not take Tylenol. She did not introduce any new foods into her diet yesterday nor eat for many restaurants. She has never had any prior abnormal liver functions as far she is aware Hospital Course Hospital Course: Patient was admitted and gallbladder ultrasound was ordered. Viral hepatitis profile was also ordered. Gallbladder ultrasound revealed gallstones and sludge within the gallbladder along with findings of acute and chronic cholecystitis. Surgery was consulted and patient was evaluated by Dr. Maguire. Patient was taken to the operating room for laparoscopic cholecystectomy on the afternoon of December 21. Patient had an uncomplicated laparoscopic cholecystectomy. Postoperatively liver functions and bilirubin was followed as intraoperative cholangiogram could not be performed Due to the presence of sludge and stones within the cystic duct. There were no complications postoperatively. Once it was assured patient's liver functions were improving and did not suggest bile duct obstruction patient was discharged home. At discharge she was tolerating a low-fat diet. Patient will follow-up with Dr. Maguire later this week and follow- up with myself at the end of the week. Objective Vital signs: Temp Pulse Resp BP Pulse Ox 98.2 F 105 H 17 169/77 H 95 12/23/18 07:47 12/23/18 07:47 12/23/18 07:47 12/23/18 07:47 12/23/18 07:47 Results Labs on day of discharge: Labs from last 24 hours 12/22/18 12/21/18 06:56 07:28 Total Counted 100 Neutrophils % (Manual) 95 H Lymphocytes % (Manual) 3 L Monocytes % (Manual) 2 Platelet Estimate Normal RBC Morphology Normal Hepatitis A IgM Ab Negative Hep Bs Antigen Negative Hep B Core IgM Ab Negative Hepatitis C Antibody <0.1 DS: Diagnosis - Discharge Diagnosis (1) Acute calculous cholecystitis Status: Acute (2) Hepatitis, unspecified Status: Acute (3) Hypokalemia Status: Resolved Discharge Plan - Patient Discharge Instructions ACTIVITY: Continue current activity DIET: continue same diet Patient Instructions: DI for Cholecystectomy, DI for Hypokalemia, DI for Surgical Site Infection, Hypokalemia - Follow up Plan Follow up with: Earnest Conway MD [Staff Physician] - 12/28/18 Rodrick Ramires MD [Staff Physician] - Disposition: Home, Self-Long Term Medications: Home Medications Medication Instructions Recorded Confirmed Type Celecoxib 200 mg PO DAILY 12/21/18 12/21/18 History Ibuprofen [Ibuprofen 600mg 600 mg PO QIDP PRN 12/21/18 12/21/18 History Tablet] Levothyroxine Sodium 100 mg PO DAILY 12/21/18 12/21/18 History [Levothyroxine 100mcg (0.1MG) Tab] Venlafaxine HCl 75 mg PO DAILY 12/21/18 12/21/18 History Hydrocod/Acet 5/325 mg [Antlers 1 tab PO Q6HP PRN #10 tab 12/23/18 Rx 5/325mg tablet] Prescriptions/Medication Reconciliation: New Hydrocod/Acet 5/325 mg [Antlers 5/325mg tablet] 1 tab PO Q6HP PRN #10 tab PRN Reason: Mild To Moderate Pain Continued Levothyroxine Sodium [Levothyroxine 100mcg (0.1MG) Tab] 100 mg PO DAILY Venlafaxine HCl 75 mg PO DAILY Celecoxib 200 mg PO DAILY Ibuprofen [Ibuprofen 600mg Tablet] 600 mg PO QIDP PRN PRN Reason: As Needed For Fever Or Pain - Problem Reconciliation Problems Reviewed?: Yes
[2018-12-23 08:36] LABS: Albumin Level 3.2 gm/dL (3.4-5.0); Bilirubin,Direct 0.2 mg/dL (0.0-0.2); Bilirubin,Indirect 0.7 mg/dL (0.0-0.9); Bilirubin,Total 0.9 mg/dL (0.2-1.0); Total Protein,Serum 6.2 gm/dL (6.4-8.2)
--- NOTE | 2018-12-23 12:23 | Progress Note ---
Subjective Narrative: Ms. Gomez is a 68-year-old female admitted for laparoscopic cholecystectomy in the setting of acute cholecystitis. Today is postoperative day #2. Doing well. No nausea or emesis. Tolerating diet. Liver function test have improved. Total bilirubin normal. Exam Vital signs and Labs for Last 24 Hours: Temp Pulse Resp BP Pulse Ox 98.2 F 105 H 17 169/77 H 95 12/23/18 07:47 12/23/18 07:47 12/23/18 07:47 12/23/18 07:47 12/23/18 07:47 Laboratory Results - last 24 hr 12/21/18 07:28: Hepatitis A IgM Ab Negative, Hep Bs Antigen Negative, Hep B Core IgM Ab Negative, Hepatitis C Antibody <0.1 12/23/18 06:45: Total Bilirubin 0.9, Direct Bilirubin 0.2, Indirect Bilirubin 0.7, AST 187 H D, ALT 513 H*, Alkaline Phosphatase 171 H, Total Protein 6.2 L, Albumin 3.2 L I & O for Last 24 hours: Intake & Output 12/21/18 12/22/18 12/23/18 12/24/18 11:59 11:59 11:59 11:59 Intake Total 1000 / 1000 2980 / 2980 4130 / 4130 Balance 1000 / 1000 2980 / 2980 4130 / 4130 Weight 74.843 kg 77.734 kg 79.095 kg - Constitutional no acute distress - *Routine Abdominal Exam Present: soft Comments: Nontender. Nondistended. Progress Note: A&P (1) Acute calculous cholecystitis Status: Acute (2) Hepatitis, unspecified Status: Acute (3) Hypokalemia Status: Resolved Assessment and Plan for All Diagnoses:: 1. Acute cholecystitis. Status post laparoscopic cholecystectomy. Laboratory evaluation has improved. Transaminases are slightly elevated yet improved from yesterday. Discharge planning.
== END 2018-12-23 11:05 | disposition home or self-care (01) ==
LOC: ER 22:02 → 2ND 22:02
PROVIDERS: ADMIT Internal Medicine Adolescent Medicine; ATTEND Family Medicine
DX: Z82.49 Family history of ischemic heart disease and other diseases of the circulatory system; I10 Essential (primary) hypertension; K80.63 Calculus of gallbladder and bile duct with acute cholecystitis with obstruction; Z85.828 Personal history of other malignant neoplasm of skin; R74.0 Nonspecific elevation of levels of transaminase and lactic acid dehydrogenase [LDH]; E87.6 Hypokalemia; R07.2 Precordial pain; K75.9 Inflammatory liver disease, unspecified
CPT/HCPCS: 36415; 71020; 71046; 74177; 76705; 80048; 80061; 80074; 80076; 81001; 82150; 83690; 84484; 85007; 85025; 88304; 93005; 96365; 96374; 96375; 99284; G0378; J2405; J2543; Q9967

== ENCOUNTER → 2019-01-14 13:11 | Outpatient (CLI) | payer MEDICARE, BC, SELFPAY | PROVIDERS: PCP Family Medicine; Visit Provider Family Medicine | DX: G47.30 Sleep apnea, unspecified (principal); R40.0 Somnolence; R51 Headache; R06.83 Snoring; G47.33 Obstructive sleep apnea (adult) (pediatric) | CPT/HCPCS: G0399 ==

== ENCOUNTER → 2019-08-13 11:43 | Outpatient (POV) | payer MEDICARE, BC, SELFPAY | PROVIDERS: PCP Physician Assistant; Visit Provider Physician Assistant | DX: Z00.00 Encounter for general adult medical examination without abnormal findings (principal) ==

== ENCOUNTER 2020-12-06 11:51 | Emergency (ER) | payer MEDICARE, BC, SELFPAY ==
--- NOTE | 2020-12-06 12:31 | HMH.EDUTC ---
[facility] [place] Clinical Impression: Exposure to COVID-19 virus Disposition: Home, Self-Care Condition on Discharge: Good Instructions: Preventing the Spread of Coronavirus Discharge Instructions Additional Instructions: You have been tested for COVID19. Please isolate as if you are positive until test results received. Referrals: Juanito Camejo MD [Primary Care Provider] - Time of Disposition: 12:41 Medical Decision Making - David Inquiry Pt receiving controlled substance: No [facility] [place] - General Stated complaint: covid test exposure Time Seen by Provider: 12/06/20 12:31 - History of Present Illness Provider Complaint: Patient exposed to COVID19 6 days ago. No symptoms but hsuband now feeling poorly. Has been vaccinated. Relieving factors: none Exacerbating factors: none Associated symptoms: denies other symptoms Treatments prior to arrival: none - Related Data Home Medications Medication Instructions Recorded Confirmed Celecoxib 200 mg PO DAILY 12/21/18 01/01/19 Levothyroxine Sodium 100 mg PO DAILY 12/21/18 01/01/19 [Levothyroxine 100mcg (0.1MG) Tab] Venlafaxine HCl 75 mg PO DAILY 12/21/18 01/01/19 Allergies Allergy/AdvReac Type Severity Reaction Status Date / Time No Known Allergies Allergy Unverified 01/01/19 10:00 [facility] History - Hepatitis A Screen Attestation statement:: This patient has been screened for Hepatitis A risk factors. I have reviewed the patient's past medical history: Yes Medical History: Reports:: Anxiety, Cancer, Hypertension Denies:: Diabetes Mellitus Type 1, Diabetes Mellitus Type 2, MRSA Other Medical History: Reports: Arthritis Other Surgeries: Yes: Appendectomy, Cholecystectomy, Colonoscopy, EGD, Other Amputation: No Fractures: Yes (cheek) Comment: bladder mesh - Social History Smoking Status: Never smoker Alcohol Intake: former Alcohol Intake Frequency:: other Substance Use Type: denies use Occupational Status: retired - Psychiatric History Pschychiatric History:: Reports:: Anxiety Family Hx:: Cancer, Coronary Artery Disease, Heart Attack, Hyperlipidemia, Hypertension, Stroke, Thyroid Disorder, Substance abuse, Alcoholism, Mental illness ROS Obtained: Yes All systems reviewed & no additional complaints Physical Exam - General General appearance: alert, in no apparent distress - Head Head exam: normocephalic - Eye Eye exam: Present: PERRL - ENT ENT exam: Present: normal oropharynx, TM's normal bilaterally - Neck Neck exam: Present: normal inspection. Absent: lymphadenopathy - Respiratory Respiratory exam: Present: normal lung sounds bilaterally - Cardiovascular Cardiovascular exam: Present: regular rate, normal rhythm - Neurological Exam Neurological exam: Present: alert, oriented X3 - Psychiatric Psychiatric exam: Present: normal affect, normal mood - Skin Skin exam: Present: warm, dry, intact
[2020-12-06 12:35] VITALS: PULSE 71; RESP 16; TEMP 36.8; O2SAT 97; BMI 28.5
[2020-12-06 12:39] VITALS: BP 138/69; PULSE 73; RESP 17; TEMP 36.8
== END 2020-12-06 12:52 | disposition home or self-care (01) ==
PROVIDERS: Emergency Provider Physician Assistant; PCP Family Medicine
DX: Z20.822 Contact with and (suspected) exposure to COVID-19 (principal); I10 Essential (primary) hypertension; F41.9 Anxiety disorder, unspecified
CPT/HCPCS: G0463; 99202; C9803; U0003; U0005

== ENCOUNTER → 2021-09-16 10:29 | Outpatient (CLI) | payer MEDICARE, BC, SELFPAY | PROVIDERS: PCP Family Medicine; Visit Provider Nurse Practitioner Family | DX: Z20.822 Contact with and (suspected) exposure to COVID-19 (principal) | CPT/HCPCS: C9803; U0003; U0005 ==

== ENCOUNTER 2024-07-25 08:27 | Emergency (ER) | payer MEDICARE, BC, SELFPAY ==
--- OUTSIDE RECORDS SUMMARY | 2024-07-25 08:43 | XMS_ITS | Data Portability ---
Author Organization [facility] [place] & SHANDA Sanchez ADMIN Address [address] [place] [address] Care Team Providers Care Service Agent Name Role Phone YIN EASTON Primary Care Provider Assessment Encounter Date Assessment Date Assessment LastModified by Organization Details LastModified Time 01/27/2022 01/27/2022 71-year-old female with progressive nausea, vomiting, weight loss, abdominal pain, loose stools, and fecal incontinence over the past 10 weeks. Recent KUB showed mild solid stool in the left colon and a LLQ calcification of unclear significance. CT imaging is pending further evaluation. -Recommended she attempt miralax bowel purge today followed by 1 capful of miralax in 8 oz of liquid 1-2 times daily starting the following day. -Will schedule EGD and colonoscopy for further evaluation. -GI stool panel was negative. -Follow-up 2-weeks to reassess her symptoms [email or web address] Not available 01/27/2022 14:41:40 Plan of Treatment Reminders Order Date Submit Date Provider Last Modified By Organization Details Last Modified Time Details Appointments None recorded. Lab gastrointes tinal pathogens panel, PCR, stool 2021 022 [facility] (Registration ), [address] [facility], [place], [address], 08:34:56 Referral None recorded. Procedures None recorded. Surgeries None recorded. Imaging XR, abdomen 2021 022 [facility] (Registration ), [address] [facility], [place], [address], 15:45:21 Medication Orders None recorded. Patient TargetsNo targets recorded. Patient InstructionsNo instructions recorded. Reason for Referral None Reported. Results Created Date Observation Date Name Description Value Unit Range Abnormal Flag Note LastModifiedBy Organization Detail LastModifiedTime 01/21/2001/20/2022 GASTR OINTE ZACHARIAH L PANEL ,STL PCR campylobacte r NOT DETECT ED not detect ed CAMPY LOBAC TER AND CRYPT OSPOR IDIUM RESUL TS WILL BE CONFI RMED BEFOR E FINAL RESUL TS REPOR NAGA. Not Available [facility] ([facility]) [address] [facility], [place], [address], 01/20/2022 20:18:19 01/21/2001/20/2022 GASTR OINTE ZACHARIAH L PANEL ,STL PCR C difficile toxin A/B NOT DETECT ED not detect ed Not Available [facility] ([facility]) [address] [facility] [facility], [place], [address], 01/20/2022 20:18:19 01/21/20 22 01/20/2022 GASTR OINTE ZACHARIAH L PANEL ,STL PCR plesiomonas shigelloides NOT DETECT ED Not Available [facility] ([facility]) [address] [place], [address], 01/20/2022 20:18:19 01/21/20 22 01/20/2022 GASTR OINTE ZACHARIAH L PANEL ,STL PCR salmonella NOT DETECT ED not detect ed Not Available [facility] ([facility]) [address] [place], [address], 01/20/2022 20:18:19 01/21/20 22 01/20/2022 GASTR OINTE ZACHARIAH L PANEL ,STL PCR vibrio NOT DETECT ED not detect ed Not Available [facility] ([facility]) [address] [place], [address], 01/20/2022 20:18:19 01/21/20 22 01/20/2022 GASTR OINTE ZACHARIAH L PANEL ,STL PCR vibrio cholerae NOT DETECT ED not detect ed Not Available [facility] ([facility]) [address] [facility], [place], [address], 01/20/2022 20:18:19 01/21/20 22 01/20/2022 GASTR OINTE ZACHARIAH L PANEL ,STL PCR yersinia enterocoliti ca NOT DETECT ED not detect ed Not Available [facility] ([facility]) [address] [facility], [place], [address], 01/20/2022 20:18:19 01/21/20 22 01/20/2022 GASTR OINTE ZACHARIAH L PANEL ,STL PCR enteroaggreg ative E coli NOT DETECT ED not detect ed Not Available [facility] ([facility]) [address] [facility] [facility], [place], [address], 01/20/2022 20:18:19 01/21/20 22 01/20/2022 GASTR OINTE ZACHARIAH L PANEL ,STL PCR enteropathog enic E coli NOT DETECT ED not detect ed Not Available [facility] ([facility]) [address] [facility], [place], [address], 01/20/2022 20:18:19 01/21/20 22 01/20/2022 GASTR OINTE ZACHARIAH L PANEL ,STL PCR enterotoxige calin E coli lt/st NOT DETECT ED not detect ed Not Available [facility] ([facility]) [address] [facility], [place], [address], 01/20/2022 20:18:19 01/21/20 22 01/20/2022 GASTR OINTE ZACHARIAH L PANEL ,STL PCR shiga-toxin- producing E coli NOT DETECT ED not detect ed Not Available [facility] ([facility]) [address] [facility], [place], [address], 01/20/2022 20:18:19 01/21/20 22 01/20/2022 GASTR OINTE ZACHARIAH L PANEL ,STL PCR E coli O157 N/A not detect ed Not Available [facility] ([facility]) [address] [facility], [place], [address], 01/20/2022 20:18:19 01/21/20 22 01/20/2022 GASTR OINTE ZACHARIAH L PANEL ,STL PCR shigella/ent eroinvasive E coli NOT DETECT ED not detect ed Not Available [facility] ([facility]) [address] [facility], [place], [address], 01/20/2022 20:18:19 01/21/20 22 01/20/2022 GASTR OINTE ZACHARIAH L PANEL ,STL PCR cryptosporid ium NOT DETECT ED not detect ed Not Available [facility] ([facility]) [address] [facility], [place], [address], 01/20/2022 20:18:19 01/21/20 22 01/20/2022 GASTR OINTE ZACHARIAH L PANEL ,STL PCR cyclospora cayetanensis NOT DETECT ED not detect ed Not Available [facility] ([facility]) [address] [facility], [place], [address], 01/20/2022 20:18:19 01/21/20 22 01/20/2022 GASTR OINTE ZACHARIAH L PANEL ,STL PCR entamoeba histolytica NOT DETECT ED not detect ed Not Available [facility] ([facility]) [address] [facility], [place], [address], 01/20/2022 20:18:19 01/21/20 22 01/20/2022 GASTR OINTE ZACHARAIH L PANEL ,STL PCR giardia lamblia NOT DETECT ED not detect ed Not Available [facility] ([facility]) [address] [facility], [place], [address], 01/20/2022 20:18:19 01/21/20 22 01/20/2022 GASTR OINTE ZACHARIAH L PANEL ,STL PCR adenovirus F 40/41 NOT DETECT ED not detect ed Not Available [facility] ([facility]) [address] [facility], [place], [address], 01/20/2022 20:18:19 01/21/20 22 01/20/2022 GASTR OINTE ZACHARIAH L PANEL ,STL PCR astrovirus NOT DETECT ED not detect ed Not Available [facility] ([facility]) [address] [facility], [place], [address], 01/20/2022 20:18:19 01/21/20 22 01/20/2022 GASTR OINTE ZACHARIAH L PANEL ,STL PCR norovirus GI/gii NOT DETECT ED not detect ed Not Available [facility] ([facility]) [address] [facility], [place], [address], 01/20/2022 20:18:19 01/21/20 22 01/20/2022 GASTR OINTE ZACHARIAH L PANEL ,STL PCR rotavirus A NOT DETECT ED not detect ed Not Available [facility] ([facility]) [address] [facility], [place], [address], 01/20/2022 20:18:19 01/21/20 22 01/20/2022 GASTR OINTE ZACHARIAH L PANEL ,STL PCR sapovirus NOT DETECT ED not detect ed Test Metho d Limit ation s: This assay does not disti nguis h betwe en viabl e and non-v iable organ isms/ This test does not deter mine antib iotic susce ptibi litie s. The use of forme d or conta minat ed stool sampl es are not recom jaime d. Mason eous resul ts may occur from impro per speci men colle ction , handl ing or stora ge, prese nce of inhib itors , prese nce of seque nce varia nts in the gene targe ts of the assay , techn ical error s or sampl e mix-u p. Posit eloina C.dif ficil e resul ts may not be clini maryana relev ant in child shanae under the age of two. Consu ltati on with an Infec tious Disea se Pedia trici an is recom jaime d. Test Metho dolog y: BioFi re FilmA rray GI Panel - Melti ng curve von sis, PCR, multi plex, rever se trans cript ase Not Available [facility] ([facility]) [address] [facility] [facility], [place], [address], 01/20/2022 20:18:19 02/08/20 22 02/07/2022 BUN BUN 10 mg/dL 7-18 Not Available [facility] ([facility]) [address] [facility] [facility], [place], [address], 02/07/2022 09:47:44 02/08/20 22 02/07/2022 CREAT ININE creatinine 0.6 mg/dL 0.6-1. 3 Not Available [facility] ([facility]) [address] [facility] [facility], [place], [address], 02/07/2022 09:47:45 02/08/20 22 02/07/2022 CREAT ININE glomerular filtration rate TNP mlper min 60- TEST NOT PERFO RMED GFR has only been valid ated from 18 to 70 years of age. Not Available [facility] ([facility]) [address] [facility] [facility], [place], [address], 02/07/2022 09:47:45 01/22/20 22 01/20/2022 XR, abdom en, 1 view [facility] [address] [place] [address] Phone: Fax: Name: SUSAN PATEL Exam Date: 2021 : 1949 Age 71 Gender : F Access ion: [id number] Physic agustin: NAHUN SEYD Facili ty: [facility] Facili ty HSV: Outpat ient Exam: ABD KUB 1V SINGLE VIEW ABDOME N: HISTOR Y: Abdomi nal bloati ng and disten tion, nausea and vomiti ng for 2 months FINDIN GS: There is a nonspe cific bowel gas patter n. There are surgic al clips in the right upper quadra nt noted. There is a 1.7 cm calcif icatio n projec naga over the left flank at the L2-L3 verteb ral level of uncert ain signif icance . There are degene rative change s of the hips noted. The visual ized bony struct ures are intact . IMPRES ROSE: Calcif icatio n over the left flank of uncert ain signif icance . Consid er CT for furthe r evalua tion. The films were review ed, interp reted, and dictat ed by Dr. Gin Boykin Transc ribed by Bebeto Jane PA-C Dictat ed By: GIN BOYKIN Transc ribed By: Gin Boykin Transc ribed On: 2021 11:22 AM Electr onical ly signed by: GIN BOYKIN 2021 Thank you for referr SUSAN Langston to [facility]. Legall y authen ticate d by POPE GIN Willard 2021-03 11:22: 49 CC'ed Logic: Orderi ng Provid er: JITENDRA GARNICA Attend ing Provid er: JITENDRA GARNICA Referr ing Provid er: JITENDRA GARNICA Admitt ing Provid er: JITENDRA GARNICA [email or web address] [facility] - Physical Therapy [address] [place] [address], [place], [address], 02/04/2022 12:06:33 02/08/20 22 02/07/2022 CT ABD pel w/ (IV [facility] [address] [place] [address] Phone: Fax: Name: SUSAN PATEL Exam Date: 2021 : 1949 Age 71 Gender : F Access ion: [id number] Physic agustin: NAHUN SYED Facili ty: [facility] Facili ty HSV: Outpat ient Exam: CT ABD PEL W/ (IV ^ ORAL) CT ABDOME N AND PELVIS WITH CONTRA ST HISTOR Y: Abnorm al findin gs on x-ray, nausea , vomiti ng, diarrh ea. COMPAR CONSUELO: No prior CT. TECHNI QUE: Axial images were obtain ed from the lung bases throug h the pubic symphy sis by comput ed tomogr aphy after the admini strati on of IV contra st. Oral contra st was also admini stered . This study was perfor med with techni ques to keep radiat ion doses as low as reason ably achiev able, (ALARA ). Indivi dualiz ed dose reduct ion techni ques using automa naga exposu re contro l or adjust ment of mA and/or kV accord ing to the patien t's size were employ ed. FINDIN GS: ABDOME N: There is basila r atelec tasis. Heart size is normal . The liver is unrema rkable . The gallbl adder is absent . The spleen is normal in size. Pancre as is atroph ic. No adrena l mass is presen t. There are bilate ral renal cysts. Cyst on the left measur es up to 10.3 cm and contai ns periph eral thin calcif icatio ns. This is consis tent with a [place] k 2F cyst. There is a simple appear ing cyst in the right kidney . This measur es up to 5 cm. In the left kidney , there is a 1.5 cm UPJ stone. This contri butes to mild left hydron ephros is. There are no distal ureter al stones identi fied. There is no hydron ephros is on the right. There is no free fluid or adenop athy. The aorta is normal in calibe r. Aorta is calcif ied and tortuo us. There is no abnorm ally dilate d bowel. There are fluid levels in the colon, correl ate for possib le entero coliti s. PELVIS : The append ix is not identi fied. There are no second priscila signs of append icitis . Uterus is presen t. Urinar y bladde r is decomp ressed . There is no pelvic free fluid or adenop athy. No acute osseou s change s are identi fied. IMPRES ROSE: Left UPJ stone result ing in mild hydron ephros is. There is some air surrou nding the stone, cem brody for infect ious etiolo gy. Correl ate clinic ally. Comple x cystic lesion in the left kidney . Recomm end 6 month follow -up CT. Fluid levels in the colon, correl ate for possib le entero coliti s. The films were review ed, interp reted, and dictat ed by Dr. Boykin Transc ribed by Theresa Jo PA-C Dictat ed By: GIN BOYKIN Transc ribed By: Gin Boykin Transc ribed On: 2021 4:23 PM Electr onical ly signed by: GIN BOYKIN 2021 Thank you for referr SUSAN Langston to [facility]. Legall y authen ticate d by POPE GIN Willard 2021-03 16:23: 01 CC'ed Logic: Orderi ng Provid er: JITENDRA GARNICA Attend ing Provid er: JITENDRA GARNICA Referr ing Provid er: JITENDRA GARNICA Admitt ing Provid er: JITENDRA [address]ov[address] [place] [address] - Physical Therapy [address] , [place], [address], 2022 14:41:55 Result Notes None recorded. Problems Name Problem SNOMED Code Status Onset Date Resolution Date Notes Provider Name and Address Organization Details Recorded Time Abdominal bloating 865089370 Active 2021 Henry Oliva PA-C [address], [place], [address] , [place] [facility] & [place] 2 14:32:24 Nausea 801857036 Active 2021 Henry Oliva PA-C [address], [place], [address] , [place] [facility] & [place] 2 14:37:07 Unintentional weight loss 036383303 Active 2021 Henry Olvia PA-C [address], [place], [address] , [place] [facility] & [place] 2 14:37:13 Nausea and vomiting 84699180 Active 2021 Henry Oliva PA-C [address] , [place], [address] , [place] [facility] & [place] 2 14:37:20 Incontinence of feces 26646969 Active 2021 Henry Oliva PA-C [address] , [place], [address] , [place] [facility] & [place] 2 14:38:05 Generalized abdominal pain 169099116 Active 2021 Henry Oliva PA-C [address] , [place], [address] , [place] [facility] & [place] 2 14:38:17 Irregular bowel habits 304053755 Active 2021 Henry Oliva PA-C [address] , [place], [address] , [place] [facility] & [place] 2 15:45:02 Problem Notes None recorded. Procedures Surgical History None recorded. Imaging Results Imaging Date Name Status LastModified by Organiz ation Details LastModified Time 01/20/2022 XR, abdomen, 1 view completed [email or web address] [facility] [address] [place], [address], 02/04/2022 12:06:33 02/07/2022 CT ABD pel w/ (IV completed [facility] [address] [facility], [place], [address], 2022 14:41:55 Procedure Notes None recorded. Medical Equipment None Reported. Allergies No known drug allergies Medications Name Sig Start Date Stop Date Status Note LastModified by Organization Details LastModified Time celecoxib 200 mg capsule active Not Available Not Available Not Available Miralax 17 gram/dose oral powder Dissolve 1 capful in 8 oz liquid and drink once daily, 30 days 2021 active Not Available Not Available Not Avai lable atorvastati n 40 mg tablet active Not Available Not Available Not Available venlafaxine ER 75 mg capsule,ext ended release 24 hr active Not Available Not Available Not Available atorvastati n 20 mg tablet 01/20 completed Not Available Not Available Not Available ondansetron HCl 4 mg tablet active Not Available Not Available Not Available sulfamethox azole 800 mg-trimetho prim 160 mg tablet Take 1 tablet every 12 hours by oral route for 10 days. active Not Available Not Available No t Available levothyroxi ne 125 mcg tablet 01/20 completed Not Available Not Available Not Available levothyroxi ne 150 mcg tablet active Not Available Not Available Not Available furosemide 20 mg tablet 01/20 completed Not Available Not Available Not Available ibuprofen 600 mg tablet active Not Available Not Available Not Available dicyclomine 10 mg capsule active Not Available Not Available Not Available GaviLyte-G 236 gram-22.74 gram-6.74 gram-5.86 gram oral solution active Not Available Not Available Not Available Vitals Date Recorded Body weight Heart rate Systolic blood pressure Diastolic blood pressure Provider Name and Address Organization Details Last Updated DateTime 01/20/2022 10710.96 g 74 /min 135 mm[Hg] 75 mm[Hg] Jocelyne Tate [facility] & [place] 01/20/2022 15:11:33 Date Recorded Body weight Heart rate Systolic blood pressure Diastolic blood pressure Provider Name and Address Organization Details Last Updated DateTime 01/27/2022 65807.59 g 77 /min 193 mm[Hg] 87 mm[Hg] Jocelyne Tate [facility] [place] 01/27/2022 14:02:42 Social History None recorded. Functional Status None recorded. Mental Status None recorded. Family History Nothing Reported. Medical History No medical history recorded. Gynecological HistoryNo gynecological history recorded. Obstetrics History GPAL:G 0 P 0 0 0 0 Past Encounters Encounter ID Performer Location Encounter Start Date Encounter Closed Date Diagnosis/Indication Diagnosis SNOMED-CT Code Diagnosis ICD10 Code Diagnosis Note [id number] Nahun Moon NP [facility] [address] [place] [address] 01/20/2022 14:54:37 01/20/2022 15:45:21 Abdominal bloating 624671198 R14.0 - abdominal xray ordered- last colonoscop y was over 10 years ago, records requested from [facility]- stool studies- Try Miralax once daily. Discussed increasing fiber diet.- Follow up in 1 week. [id number] Henry Oliva PA-C [facility] [address] [facility] [address] [place] [address] 01/27/2022 13:47:12 01/27/2022 14:36:50 Abdominal bloating 559191963 R14.0 Unintentio nal weight loss 083691548 R63.4 Nausea and vomiting 1693 2000 R11.2 Incontinence of feces 72 433047 R15.9 Generalize d abdominal pain 091451009 R10.84 Health Concerns Section Related Observation LastModified by Organization Detai ls LastModified Time None Recorded Concern Status LastModified by Organization Details LastModified Time None Recorded Advance Directives Directive None Recorded Payers Encounter Date Sequence Insurance Name Policy Number Policy [place] Covered Member ID [place] Member ID Guarantor Name 01/20/2022 1 [place] Susan Patel [id number] Susan Patel 01/27/2022 1 [place] Susan Patel [id number] Susan Patel Notes Date Note Type Note Provider Name and Address Organization Details Recorded Time 01/20/2022 text/html Patient is a 71 year female referred to our office related to watery stool and abdominal bloating. Reports vomiting x 1. Reports left side abdominal pain. Denies dysphagia, nausea, or hematemesis. Denies known hx of constipation or hematachezia. reports her last colonoscopy was normal and it was greater than 10 years ago. Nahun Moon, REHAN [id number] [facility], [place], [address], [place] [facility] [place] & [place] 01/20/2022 15:55:45 01/27/2022 text/html PREVIOUS (01/20/2022): Patient is a 71 year female referred to our office related to watery stool and abdominal bloating. Reports vomiting x 1. Reports left side abdominal pain. Denies dysphagia, nausea, or hematemesis. Denies known hx of constipation or hematachezia. reports her last colonoscopy was normal and it was greater than 10 years ago. CURRENT (01/27/22): Ms. Patel returns to the office today regarding follow-up of nausea/vomiting, abdominal pain, diarrhea, fecal incontinence, and weight loss. Her weight is down 20 lbs over the past 2.5 months. She recently underwent KUB that showed a calcification in the LLQ of unknown significance. CT has been ordered for further evaluation. She was noted to have some left-sided solid stool on that exam without overt constipation. She continues to have intolerance to an oral diet. She was recommended to start Metamucil once daily, but has not yet implemented that. Henry Oliva PA-C [address] , [place], [address], [place] [facility] [place] & [place] 01/27/2022 14:42:05 OBGyn Episode No OBEpisode recorded.
[2024-07-25 08:59] VITALS: BP 150/77; PULSE 90; RESP 16; TEMP 36.8; O2SAT 98; BMI 22.1
--- NOTE | 2024-07-25 09:23 | ED_ITS ---
Discharge Plan Disposition Patient Disposition: Home, Self-Care Prescriptions Prescriptions: New amoxicillin-pot clavulanate 875-125 mg tablet 1 tab PO BID 5 Days Qty: 10 0RF No Action levothyroxine 100 tablet 100 mg PO DAILY celecoxib 200 capsule 200 mg PO DAILY venlafaxine 75 MG tablet 75 mg PO DAILY Referrals Follow up/Referrals: Juanito Camejo MD [Primary Care Provider] - See instructions Activity Restrictions/Add. Instructions Additional Instructions/Restrictions: Augmentin twice daily for 5 days. Call your family doctor to establish care for this visit to the emergency department and schedule follow-up within 48 hours to ensure improvement. If you have any worsening of your condition or any other concerning signs or symptoms, return to the emergency department or your primary care doctor for further evaluation. Clinical Impressions Clinical Impression: Dog bite Instructions Patient Instructions: Animal Bites Print Language Print Language: [place] Citizen Discharge ED Provider: Baltazar Rodriguez General Adult HPI General Chief complaint: Animal Bite Stated complaint: AO 0750- Dog Bite L Knee Time Seen by Provider: 07/25/24 08:44 Mode of Arrival: Ambulatory Source of Information: Patient Description of Symptoms (Recalled from ER Triage Doc. by RN): pt reports she was attacked by a black and white pittbull this morning while her grandson was at the bus stop. pt presents with a numerous shallow avulsions to her L knee from bites. pt states her pain is 5/10 and throbbing in nature. The casing material weigher of the dog reports it is UTD on vaccines. 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 pt needs a TDAP and is agreeable. History of Present Illness HPI narrative: Please note that above description of symptoms, in this electronic medical record under categorization of recalled from ER triage doctor by RN are reflective of an initial nursing assessment, however, is not reflective of my full history and physical exam that was personally taken and clarified. Consequentially, this preceding description of symptoms, which may include the patient's categorized chief complaint in the EMR, do not reflect my personal clinical impression, and the ultimate description of history of present illness and patient stated complaints should be deferred to this section of the note. Unless stated otherwise or congruent with this section of the note, additional signs, symptoms, or incongruence should be interpreted as inaccurate with my clinical impression. Related Data Home Medications ?Medication ?Instructions ?Recorded ?Confirmed celecoxib 200 mg capsule 200 mg PO DAILY Pain 12/21/18 01/01/19 levothyroxine 100 mcg tablet 100 mg PO DAILY THYROID 12/21/18 01/01/19 venlafaxine 75 mg tablet 75 mg PO DAILY MOOD 12/21/18 01/01/19 Previous Rx's ?Medication ?Instructions ?Recorded amoxicillin 875 mg-potassium 1 tab PO BID 5 days #10 tabs 07/25/24 clavulanate 125 mg tablet Allergies Allergy/AdvReac Type Severity Reaction Status Date / Time No Known Allergies Allergy Verified 07/25/24 09:05 [facility] Disclaimer: The information contained in this section may have been updated after the patient was seen, as this information can be updated by other users. Social History Smoking Status: Never smoker alcohol intake: former substance use type: denies use current occupational status: retired Travel in the last 8 weeks?: None caffeine: Yes Have you lived/traveled outside [place] in past 30 days?: No Contact w/someone who lives/traveled outside [place] past 30 days?: No Exposure to someone with infectious disease in past 14 days?: No Do you have a fever (greater than 100.4 F or 38 C)?: No Have you tested positive for COVID-19?: No Exposed to someone with COVID-19 in past 14 days?: No Do you have a sore throat?: No Do you have a cough?: No Do you have any weakness?: No Do you have any diarrhea?: No Are you experiencing any unusual bleeding?: No Do you have any muscle aches/pain?: No Do you have any abdominal pain?: No Are you experiencing loss of taste or smell?: No Other Medical History Have you received the Flu Vaccine for this season: No Have you received the Pneumonia Vaccine: Yes ROS Obtained: Yes All systems reviewed & no additional complaints except as documented Physical Exam General General appearance: alert Head Head exam: atraumatic and normocephalic Eye Eye exam: Present normal appearance, PERRL and EOMI Neck Neck exam: Present normal inspection, full ROM and trachea midline Respiratory Respiratory exam: Absent respiratory distress, wheezes, stridor, accessory muscle use or prolonged expiratory phase Cardiovascular Cardiovascular exam: Present other (Pulses equal symmetric in upper and lower extremities) Abdominal Exam Abdominal exam: Present soft; Absent distention, tenderness or pulsatile mass Extremities Exam Extremities exam: Present other (Dog bite just inferior to the right knee laterally. 2 small puncture wounds. Couple of superficial abrasions); Absent edema Neurological Exam Neurological exam: Present alert, oriented X3 and CN II-XII intact; Absent motor sensory deficit Skin Skin exam: Present warm and dry; Absent diaphoresis or erythema Medical Decision Making Medical Records Medical records reviewed: Yes I reviewed the patient's medical records. Screening: Per USPSTF and CDC recommendations, given the prevalence of disease in our region, it is our hospital?s policy to screen for HIV and viral Hepatitis for all patients aged 18 and over and those with ongoing risk factors. David Inquiry Pt receiving controlled substance: No David was queried for this patient: No Vital Signs: 07/25/24 08:59 Temperature 98.2 F Temperature Source Oral Pulse Rate [Left] 90 Respiratory Rate 16 Blood Pressure [Right Arm] 150/77 H Blood Pressure Mean [Right Arm] 101 Blood Pressure Source [Right Arm] Automatic Cuff Blood Pressure Position [Right Arm] Sitting 02 Sat by Pulse Oximetry 98 Oxygen Delivery Method Room Air Orders (Tests/Meds): ED MEDICATIONS Discontinued Medications Generic Name Dose Route Start Last Admin Trade Name Freq PRN Reason Stop Dose Admin Tetanus/Diphtheria Toxoids 0.5 ml 07/25/24 09:05 Tetanus-Diphth Toxoid, Adult 0.5ml Syr IM 07/25/24 09:06 .ONCE ONE Medical Decision Narrative: 74-year-old female presenting with dog bite. Dog attacked multiple other patients, bit her right about the knee. Able to ambulate, mild pain, came in for further evaluation. States that she has no allergies to any medications. Last tetanus 2 long ago to remember. This will be updated today. On physical exam, patient has full range of motion of knee, neurovascularly intact. Able to ambulate. Does not penetrate skin at the level of the knee joint. Low risk for intra-articular injury. Images were considered, but not deemed necessary for this reason. Patient was given Tdap, discharged home in stable condition with Augmentin for 5 days. [employer] disclaimer Much of this encounter note is an electronic mat puncher spoken language to printed text. Electronic mat puncher of the spoken language may permit errors. Although I have reviewed the note, some errors may still exist. Critical Care Critical Care Time Critical Care Time: No
[2024-07-25] MEDS: TET/DIPHTH/PERT-ADULT 0.5ML SYRINGE 0.5 ML IM (09:26)
[2024-07-25 09:30] VITALS: BP 146/68; PULSE 86; RESP 16; TEMP 36.8; O2SAT 99
== END 2024-07-25 09:38 | disposition home or self-care (01) ==
PROVIDERS: Emergency Provider Emergency Medicine; PCP Family Medicine
DX: S81.051A Open bite, right knee, initial encounter (principal); W54.0XXA Bitten by dog, initial encounter; Z23 Encounter for immunization
CPT/HCPCS: 90471; 90715; 99283